=== PATIENT | male | born 1980 | race African-American/Black ===

== ENCOUNTER 2017-09-17 11:30 | Observation (INO) | payer OTHER, SELFPAY ==
[2017-09-17] VITALS (14 sets, daily range): BP systolic 124–160; BP diastolic 72–103; PULSE 73–91; RESP 15–24; TEMP 35.9–37.2; O2SAT 95–100; BMI 303.7
--- NOTE | 2017-09-17 12:14 | ED.ABDPAIN ---
HPI - Abdominal Pain <Snehal Pagan PA-C - Last Filed: 09/17/17 20:42> General Chief Complaint: Abdominal Pain Stated Complaint: states pain in rt lower quadrant,nausea Time Seen by Provider: 09/17/17 12:14 Source: patient Mode of arrival: ambulatory Limitations: no limitations History of Present Illness HPI narrative: This 37-year-old male complains of 2 day history of right flank area pain. He states initially he thought this was due to food poisoning because he had eaten a state case at the at a [employer] restaurant prior. He states that 2 days ago he also had diarrhea frequently for a day, but that fully resolved. He describes the pain as sharp and stabbing and constant. He denies any alleviating or exacerbating features such as eating or movement. He states that he has had nausea and has been throwing up frequently, 4-5 times today. He states this is yellowish fluid any feels ascitic sensation in his chest afterwards. He states that he has kept down fluids and chicken broth but no food today. He states that the pain does not radiate. He states that he has the heartburn and some pain sensation in his chest with deep breath which he thinks is from abdominal distention. He denies dyspnea. He states he had a fever of 99.8 2 days ago, has not had chills or sweats. He denies any urinary symptoms or hematuria. He has not had a bowel movement in the last 24 hr after the diarrhea resolved. He did not have any blood or mucus in the stool. He denies any recent travel, rash, or other known exposures. Related Data Home Medications Medication Instructions Recorded Confirmed hydrochlorothiazide 25 mg PO DAILY 09/17/17 09/17/17 Previous Rx's Medication Instructions Recorded oxycodone 5 mg PO Q3H PRN #30 tab 09/18/17 Allergies Allergy/AdvReac Type Severity Reaction Status Date / Time No Known Drug Allergies Allergy Verified 09/17/17 11:42 Review of Systems <Snehal Pagan PA-C - Last Filed: 09/17/17 20:42> Review of Systems All systems reviewed & are unremarkable except as noted in HPI and below Exam <ROLANDO Schultz Last Filed: 09/17/17 20:42> Initial Vital Signs Initial Vital Signs: Vital Signs Temperature 98.1 F 09/17/17 11:39 Pulse Rate 86 09/17/17 11:39 Respiratory Rate 20 09/17/17 11:39 Blood Pressure 148/90 H 09/17/17 11:39 Pulse Oximetry 96 09/17/17 11:39 GENERAL APPEARANCE: Patient sitting comfortably talking with a friend, in no distress. HEENT: PERRL, EOMI, no scleral icterus NECK: Supple LUNGS: Clear to auscultation bilaterally. HEART: Rate and rhythm regular, normal S1 and S2, no S3 or S4. ABDOMEN: Soft, obese, nondistended, soft bowel sounds present x 4 quadrants, no masses palpable, no palpable hepatosplenomegaly. He has moderate right upper quadrant tenderness with positive Child sign. Mild tenderness throughout the lower quadrants without guarding or rebound. No CVAT or lateral flank tenderness EXTREMITIES: No edema, no cyanosis. No calf tenderness DERMATOLOGIC: No jaundice or exanthem NEUROLOGIC: Alert and oriented with normal speech and coordination <Yolanda Horn DO - Last Filed: 09/21/17 08:35> Initial Vital Signs Initial Vital Signs: Vital Signs Temperature 98.1 F 09/17/17 11:39 Pulse Rate 86 09/17/17 11:39 Respiratory Rate 20 09/17/17 11:39 Blood Pressure 148/90 H 09/17/17 11:39 Pulse Oximetry 96 09/17/17 11:39 Course <Snehal Pagan PA-C - Last Filed: 09/17/17 20:42> Additional Information: Dr. Gonsales has kindly come from the OR to assess patient. He has reviewed risks with him of laparoscopic cholecystectomy given his size, versus conservative treatment. Patient has elected to have him attempt lap clyde. Plan is to take him straight to the OR from the ED. Orders Ordered: Discontinued Medications Acetaminophen (Tylenol) 325 mg PO NOW PRN PRN Reason: Pain, Mild (1-3) Acetaminophen (Tylenol) 650 mg PO Q6HR PRN PRN Reason: As Needed for Fever/Mild Pain Albuterol (Ventolin) 2.5 mg INH NOW PRN PRN Reason: Coughing, Wheezing, Dyspnea Bupivacaine HCl/Epinephrine Bitart (Sensorcaine 0.5% W/ Epi (Pf)) 30 ml INJ NOW ONE Stop: 09/17/17 16:27 Last Admin: 09/17/17 16:28 Dose: 30 ml Fentanyl (Sublimaze) 25 mcg IV Q5MIN PRN PRN Reason: Pain, Mild (1-3) Fentanyl (Sublimaze) 50 mcg IV Q5MIN PRN PRN Reason: Pain, Moderate (4-6) Fentanyl (Sublimaze) 100 mcg IV Q5MIN PRN PRN Reason: Pain, Severe (7-10) Hydromorphone HCl (Dilaudid) 0.25 mg IV Q5MIN PRN PRN Reason: Pain, Mild (1-3) Hydromorphone HCl (Dilaudid) 0.5 mg IV Q5MIN PRN PRN Reason: Pain, Moderate (4-6) Hydromorphone HCl (Dilaudid) 1 mg IM Q5MIN PRN PRN Reason: Pain, Severe (7-10) Sodium Chloride (Normal Saline 0.9%) 1,000 mls @ 1,000 mls/hr IV BOLUS ONE Stop: 09/17/17 13:24 Last Infusion: 09/17/17 16:03 Dose: 0 mls/hr Admin: 09/17/17 12:30 Dose: 1,000 mls/hr Ceftriaxone Sodium/Dextrose (Rocephin) 2 gm in 50 mls @ 100 mls/hr IV NOW ONE Stop: 09/17/17 16:02 Last Infusion: 09/17/17 15:57 Dose: 0 mls/hr Admin: 09/17/17 15:41 Dose: 100 mls/hr Lactated Ringer's (Lactated Ringers) 1,000 mls @ 42 mls/hr IV CONT FADUMO Last Admin: 09/17/17 16:55 Dose: 42 mls/hr Dextrose/Sodium Chloride (Dextrose 5%-0.45% Ns) 1,000 mls @ 100 mls/hr IV CONT FADUMO Last Admin: 09/18/17 06:37 Dose: 100 mls/hr Infusion: 09/18/17 06:37 Dose: 100 mls/hr Admin: 09/17/17 19:40 Dose: 100 mls/hr Ondansetron HCl 8 mg/ Sodium (Chloride) 54 mls @ 216 mls/hr IV Q6HR PRN PRN Reason: Nausea And Vomiting Ibuprofen (Advil) 600 mg PO Q6HR PRN PRN Reason: As Needed for Fever/Mild Pain Last Admin: 09/18/17 06:36 Dose: 600 mg Ketorolac Tromethamine (Toradol) 30 mg IV NOW ONE Stop: 09/17/17 12:26 Last Admin: 09/17/17 12:30 Dose: 30 mg Metoclopramide HCl (Reglan) 10 mg IV NOW PRN PRN Reason: Nausea And Vomiting Morphine Sulfate (Morphine) 2 mg IV Q4HR PRN PRN Reason: Pain, Moderate (4-6) Ondansetron HCl (Zofran) 4 mg IV NOW ONE Stop: 09/17/17 12:26 Last Admin: 09/17/17 12:30 Dose: 4 mg Ondansetron HCl (Zofran) 4 mg IV NOW PRN PRN Reason: Nausea And Vomiting Oxycodone/Acetaminophen (Percocet 5/325) 1 tab PO Q30MIN PRN PRN Reason: Mild or moderate pain Oxycodone/Acetaminophen (Percocet 5/325) 1 tab PO Q4HR PRN PRN Reason: Pain, Moderate (4-6) Last Admin: 09/17/17 19:39 Dose: 1 tab Ranitidine HCl (Zantac) 150 mg PO BID FADUMO Last Admin: 09/18/17 08:30 Dose: 150 mg Admin: 09/17/17 20:12 Dose: 150 mg Vital Signs - 8 hr 09/17/17 12:45 09/17/17 14:39 09/17/17 15:07 Temperature 98.4 F 98.3 F Pulse Rate 81 73 83 Respiratory Rate 24 16 Blood Pressure 160/103 H Blood Pressure [Left Arm] 151/89 H 143/82 H Pulse Oximetry 98 99 99 09/17/17 18:04 09/17/17 18:09 09/17/17 18:14 Temperature 98.2 F Pulse Rate 91 H 84 80 Respiratory Rate 20 16 18 Blood Pressure 124/72 H 130/80 H 142/73 H Blood Pressure [Left Arm] Pulse Oximetry 95 100 95 09/17/17 18:30 09/17/17 18:35 09/17/17 19:05 Temperature 97.6 F 96.6 F L Pulse Rate 86 83 82 Respiratory Rate 19 16 15 Blood Pressure 140/82 H 145/82 H 139/75 H Blood Pressure [Left Arm] Pulse Oximetry 96 97 98 09/17/17 19:35 Temperature 98.7 F Pulse Rate 81 Respiratory Rate 18 Blood Pressure 150/95 H Blood Pressure [Left Arm] Pulse Oximetry 96 <Yolanda Horn DO - Last Filed: 09/21/17 08:35> Orders Ordered: Discontinued Medications Acetaminophen (Tylenol) 325 mg PO NOW PRN PRN Reason: Pain, Mild (1-3) Acetaminophen (Tylenol) 650 mg PO Q6HR PRN PRN Reason: As Needed for Fever/Mild Pain Albuterol (Ventolin) 2.5 mg INH NOW PRN PRN Reason: Coughing, Wheezing, Dyspnea Bupivacaine HCl/Epinephrine Bitart (Sensorcaine 0.5% W/ Epi (Pf)) 30 ml INJ NOW ONE Stop: 09/17/17 16:27 Last Admin: 09/17/17 16:28 Dose: 30 ml Fentanyl (Sublimaze) 25 mcg IV Q5MIN PRN PRN Reason: Pain, Mild (1-3) Fentanyl (Sublimaze) 50 mcg IV Q5MIN PRN PRN Reason: Pain, Moderate (4-6) Fentanyl (Sublimaze) 100 mcg IV Q5MIN PRN PRN Reason: Pain, Severe (7-10) Hydromorphone HCl (Dilaudid) 0.25 mg IV Q5MIN PRN PRN Reason: Pain, Mild (1-3) Hydromorphone HCl (Dilaudid) 0.5 mg IV Q5MIN PRN PRN Reason: Pain, Moderate (4-6) Hydromorphone HCl (Dilaudid) 1 mg IM Q5MIN PRN PRN Reason: Pain, Severe (7-10) Sodium Chloride (Normal Saline 0.9%) 1,000 mls @ 1,000 mls/hr IV BOLUS ONE Stop: 09/17/17 13:24 Last Infusion: 09/17/17 16:03 Dose: 0 mls/hr Admin: 09/17/17 12:30 Dose: 1,000 mls/hr Ceftriaxone Sodium/Dextrose (Rocephin) 2 gm in 50 mls @ 100 mls/hr IV NOW ONE Stop: 09/17/17 16:02 Last Infusion: 09/17/17 15:57 Dose: 0 mls/hr Admin: 09/17/17 15:41 Dose: 100 mls/hr Lactated Ringer's (Lactated Ringers) 1,000 mls @ 42 mls/hr IV CONT FADUMO Last Admin: 09/17/17 16:55 Dose: 42 mls/hr Dextrose/Sodium Chloride (Dextrose 5%-0.45% Ns) 1,000 mls @ 100 mls/hr IV CONT FADUMO Last Admin: 09/18/17 06:37 Dose: 100 mls/hr Infusion: 09/18/17 06:37 Dose: 100 mls/hr Admin: 09/17/17 19:40 Dose: 100 mls/hr Ondansetron HCl 8 mg/ Sodium (Chloride) 54 mls @ 216 mls/hr IV Q6HR PRN PRN Reason: Nausea And Vomiting Ibuprofen (Advil) 600 mg PO Q6HR PRN PRN Reason: As Needed for Fever/Mild Pain Last Admin: 09/18/17 06:36 Dose: 600 mg Ketorolac Tromethamine (Toradol) 30 mg IV NOW ONE Stop: 09/17/17 12:26 Last Admin: 09/17/17 12:30 Dose: 30 mg Metoclopramide HCl (Reglan) 10 mg IV NOW PRN PRN Reason: Nausea And Vomiting Morphine Sulfate (Morphine) 2 mg IV Q4HR PRN PRN Reason: Pain, Moderate (4-6) Ondansetron HCl (Zofran) 4 mg IV NOW ONE Stop: 09/17/17 12:26 Last Admin: 09/17/17 12:30 Dose: 4 mg Ondansetron HCl (Zofran) 4 mg IV NOW PRN PRN Reason: Nausea And Vomiting Oxycodone/Acetaminophen (Percocet 5/325) 1 tab PO Q30MIN PRN PRN Reason: Mild or moderate pain Oxycodone/Acetaminophen (Percocet 5/325) 1 tab PO Q4HR PRN PRN Reason: Pain, Moderate (4-6) Last Admin: 09/17/17 19:39 Dose: 1 tab Ranitidine HCl (Zantac) 150 mg PO BID [facility] Last Admin: 09/18/17 08:30 Dose: 150 mg Admin: 09/17/17 20:12 Dose: 150 mg Vital Signs - 8 hr 09/17/17 12:45 09/17/17 14:39 09/17/17 15:07 Temperature 98.4 F 98.3 F Pulse Rate 81 73 83 Respiratory Rate 24 16 Blood Pressure 160/103 H Blood Pressure [Left Arm] 151/89 H 143/82 H Pulse Oximetry 98 99 99 09/17/17 18:04 09/17/17 18:09 09/17/17 18:14 Temperature 98.2 F Pulse Rate 91 H 84 80 Respiratory Rate 20 16 18 Blood Pressure 124/72 H 130/80 H 142/73 H Blood Pressure [Left Arm] Pulse Oximetry 95 100 95 09/17/17 18:30 09/17/17 18:35 09/17/17 19:05 Temperature 97.6 F 96.6 F L Pulse Rate 86 83 82 Respiratory Rate 19 16 15 Blood Pressure 140/82 H 145/82 H 139/75 H Blood Pressure [Left Arm] Pulse Oximetry 96 97 98 09/17/17 19:35 Temperature 98.7 F Pulse Rate 81 Respiratory Rate 18 Blood Pressure 150/95 H Blood Pressure [Left Arm] Pulse Oximetry 96 MDM - Abdominal Pain <Snehal Pagan PA-C - Last Filed: 09/17/17 20:42> Lab Data Attestation: I reviewed the patient's lab results. Result diagrams: 09/17/17 11:53 09/17/17 11:53 Lab Results 09/17/17 09/17/17 Range/Units 11:53 11:53 WBC 9.4 (4.5-11.0) X10^3/uL RBC 5.27 (4.5-5.9) X10^6/uL Hgb 13.9 (13.5-17.5) g/dL Hct 42.0 (41-53) % MCV 79.7 L (80-100) fL MCH 26.4 (26-34) PG MCHC 33.2 (30-36) % RDW 14.6 (11.6-14.8) % Plt Count 432 H (150-400) X10^3/uL Neut % (Auto) 66.3 (50-75) % Lymph % (Auto) 23.8 L (25-40) % [place] % (Auto) 8.3 (3-14) % Eos % (Auto) 0.8 L (2-4) % Baso % (Auto) 0.8 (0-2) % Neut # (Auto) 6200 H (5230-6837) /uL Sodium 139 (137-145) mmol/L Potassium 4.7 (3.4-5.1) mmol/L Chloride 97 L (98-107) mmol/L Carbon Dioxide 28 (22-32) mmol/L BUN 11 (9-20) mg/dL Creatinine 0.80 (0.66-1.25) mg/dL Estimated GFR > 60.0 (>60) mL/min BUN/Creatinine Ratio 13.8 (6-22) Glucose 104 H (70-100) mg/dL Calcium 9.5 (8.4-10.2) mg/dL Total Bilirubin 1.4 H (0.2-1.3) mg/dL AST 55 (17-59) IU/L ALT 54 (21-72) IU/L Alkaline Phosphatase 68 (38-126) U/L Total Creatine Kinase 343 H (55-170) U/L CK-MB (CK-2) 1.85 (<2.37) ng/mL CK-MB (CK-2) Rel Index 0.5 L (1.5-5.0) % Troponin I < 0.012 (0.01-0.034) ng/mL Total Protein 9.1 H (6.3-8.2) g/dL Albumin 4.8 (3.5-5.0) g/dL Globulin 4.3 H (1.7-4.1) g/dL Albumin/Globulin Ratio 1.1 (1.0-2.8) Lipase 129 (23-300) U/L Imaging Data Abdominal x-ray: Radiologist's impression: View Report History [address] [address] XRay Report Signed Patient: Anuj Donahue MR#: [id number] : 1980 Acct:[id number] Age/Sex: 37 / M Date of Service: 09/17/17 Loc: ED Accession Number: [id number] Procedure: XR acute abdomen series Ordering Provider: Snehal Pagan P.A-C PROCEDURE: XR ACUTE ABDOMEN SERIES INDICATIONS: pain, vomiting TECHNIQUE: One view chest and two views of the abdomen were acquired. COMPARISON: None. FINDINGS: Surgical changes and devices: None. Chest: Lung volumes are low with scattered atelectasis. No focal consolidation. Heart size is normal. No pleural effusions. No pneumoperitoneum. Abdomen: Bowel gas pattern is normal. No suspicious calcifications. Visualized solid organ contours appear normal. Bones: No suspicious bony lesions. IMPRESSION: No evidence for bowel obstruction. No acute cardiopulmonary disease. Dictated by: Jaime Ramos M.D. on 09/17/2017 at 13:55 Approved by: Jaime Ramos M.D. on 09/17/2017 at 13:56 US - abdomen: Radiologist's impression: View Report History [address] [address] Ultrasound Report Signed Patient: Anuj Donahue MR#: [id number] : 1980 Acct:[id number] Age/Sex: 37 / M Date of Service: 09/17/17 Loc: ED Accession Number: [id number] Procedure: US abdomen complete Ordering Provider: Snehal Pagan P.A-C PROCEDURE: US ABDOMEN COMPLETE INDICATIONS: RIGHT UPPER QUADRANT/FLANK PAIN TECHNIQUE: Real-time scanning was performed of the abdominal and retroperitoneal organs, with image documentation. COMPARISON: None. FINDINGS: Liver: Liver is coarsely echogenic. No focal hepatic lesion Gallbladder: Gallstones are seen measuring up to 2.9 cm and nonmobile 1.7 cm gallstone is seen in the neck possibly impacted. No gallbladder wall thickening. No pericholecystic fluid. There was a positive sonographic Child sign Biliary ducts: Intrahepatic bile ducts are non-dilated. Extrahepatic bile duct caliber measures 4-5 mm. Normal is 6-7 mm or less in diameter, or 10 mm or less post-cholecystectomy. Pancreas: Visualized portions of the pancreas are sonographically normal. Spleen: Spleen is normal in size and homogeneous in echotexture. Kidneys: Kidneys are normal in size and echotexture. Right kidney measures 12.4 cm long; left kidney measures 11.5 cm long. No hydronephrosis or nephrolithiasis. No solid masses. Aorta: Obscured by bowel gas/body habitus Iliacs: Obscured IVC: Intrahepatic inferior vena cava is patent. Miscellaneous: No free abdominal fluid. IMPRESSION: Cholelithiasis, possible impacted appearance in the gallbladder neck. Positive sonographic Child sign however no pericholecystic fluid or gallbladder wall thickening therefore please correlate clinically and with LFTs to exclude acute cholecystitis. Echogenic liver suggestive of diffuse hepatocellular disease/fatty infiltration. Dictated by: Jaime Ramos M.D. on 09/17/2017 at 13:59 Approved by: Jaime Ramos M.D. on 09/17/2017 at 14:02 ECG Data Attestation: I personally reviewed and interpreted this ECG as follows: (NSR with rate 83, normal axis) Prior ECG tracings: not available for review <Yolanda Horn DO - Last Filed: 09/21/17 08:35> Lab Data Lab Results 09/17/17 09/17/17 Range/Units 11:53 11:53 WBC 9.4 (4.5-11.0) X10^3/uL RBC 5.27 (4.5-5.9) X10^6/uL Hgb 13.9 (13.5-17.5) g/dL Hct 42.0 (41-53) % MCV 79.7 L (80-100) fL MCH 26.4 (26-34) PG MCHC 33.2 (30-36) % RDW 14.6 (11.6-14.8) % Plt Count 432 H (150-400) X10^3/uL Neut % (Auto) 66.3 (50-75) % Lymph % (Auto) 23.8 L (25-40) % [place] % (Auto) 8.3 (3-14) % Eos % (Auto) 0.8 L (2-4) % Baso % (Auto) 0.8 (0-2) % Neut # (Auto) 6200 H (2990-0316) /uL Sodium 139 (137-145) mmol/L Potassium 4.7 (3.4-5.1) mmol/L Chloride 97 L (98-107) mmol/L Carbon Dioxide 28 (22-32) mmol/L BUN 11 (9-20) mg/dL Creatinine 0.80 (0.66-1.25) mg/dL Estimated GFR > 60.0 (>60) mL/min BUN/Creatinine Ratio 13.8 (6-22) Glucose 104 H (70-100) mg/dL Calcium 9.5 (8.4-10.2) mg/dL Total Bilirubin 1.4 H (0.2-1.3) mg/dL AST 55 (17-59) IU/L ALT 54 (21-72) IU/L Alkaline Phosphatase 68 (38-126) U/L Total Creatine Kinase 343 H (55-170) U/L CK-MB (CK-2) 1.85 (<2.37) ng/mL CK-MB (CK-2) Rel Index 0.5 L (1.5-5.0) % Troponin I < 0.012 (0.01-0.034) ng/mL Total Protein 9.1 H (6.3-8.2) g/dL Albumin 4.8 (3.5-5.0) g/dL Globulin 4.3 H (1.7-4.1) g/dL Albumin/Globulin Ratio 1.1 (1.0-2.8) Lipase 129 (23-300) U/L Discharge Plan Departure Patient Disposition: Released, Other Clinical Impression: Cholecystectomy planned, Cholecystitis Discharge Date/Time: 09/17/17 15:00 Interventions: ED Discharge Assessment Last Done: 09/17/17 14:50 Admit Date/Time: 09/17/17 18:04 Admit Provider: Jesus Gonsales <Yolanda Horn DO - Last Filed: 09/21/17 08:35> Cosign ED Attending Cosbonnieature Attestation: I was immediately available in the department for consultation. Documentation has been reviewed. I agree with assessment and plan.
--- NOTE | 2017-09-17 12:25 | DI.RAD.S_ITS ---
PROCEDURE: XR ACUTE ABDOMEN SERIES INDICATIONS: pain, vomiting TECHNIQUE: One view chest and two views of the abdomen were acquired. COMPARISON: None. FINDINGS: Surgical changes and devices: None. Chest: Lung volumes are low with scattered atelectasis. No focal consolidation. Heart size is normal. No pleural effusions. No pneumoperitoneum. Abdomen: Bowel gas pattern is normal. No suspicious calcifications. Visualized solid organ contours appear normal. Bones: No suspicious bony lesions. IMPRESSION: No evidence for bowel obstruction. No acute cardiopulmonary disease. Dictated by: Jaime Ramos M.D. on 09/17/2017 at 13:55 Approved by: Jaime Ramos M.D. on 09/17/2017 at 13:56
--- NOTE | 2017-09-17 12:25 | DI.US.S_ITS ---
PROCEDURE: US ABDOMEN COMPLETE INDICATIONS: RIGHT UPPER QUADRANT/FLANK PAIN TECHNIQUE: Real-time scanning was performed of the abdominal and retroperitoneal organs, with image documentation. COMPARISON: None. FINDINGS: Liver: Liver is coarsely echogenic. No focal hepatic lesion Gallbladder: Gallstones are seen measuring up to 2.9 cm and nonmobile 1.7 cm gallstone is seen in the neck possibly impacted. No gallbladder wall thickening. No pericholecystic fluid. There was a positive sonographic Child sign Biliary ducts: Intrahepatic bile ducts are non-dilated. Extrahepatic bile duct caliber measures 4-5 mm. Normal is 6-7 mm or less in diameter, or 10 mm or less post-cholecystectomy. Pancreas: Visualized portions of the pancreas are sonographically normal. Spleen: Spleen is normal in size and homogeneous in echotexture. Kidneys: Kidneys are normal in size and echotexture. Right kidney measures 12.4 cm long; left kidney measures 11.5 cm long. No hydronephrosis or nephrolithiasis. No solid masses. Aorta: Obscured by bowel gas/body habitus Iliacs: Obscured IVC: Intrahepatic inferior vena cava is patent. Miscellaneous: No free abdominal fluid. IMPRESSION: Cholelithiasis, possible impacted appearance in the gallbladder neck. Positive sonographic Child sign however no pericholecystic fluid or gallbladder wall thickening therefore please correlate clinically and with LFTs to exclude acute cholecystitis. Echogenic liver suggestive of diffuse hepatocellular disease/fatty infiltration. Dictated by: Jaime Ramos M.D. on 09/17/2017 at 13:59 Approved by: Jaime Ramos M.D. on 09/17/2017 at 14:02
[2017-09-17] MEDS: KETOROLAC 60 MG/2 ML VIAL 30 MG IV (12:30)
[2017-09-17] MEDS: SODIUM CHLORIDE 0.9% 1,000 ML 1000 ML IV (12:30)
[2017-09-17] MEDS: ONDANSETRON 4 MG/2 ML INJ IV (12:30)
--- NOTE | 2017-09-17 12:32 | ED_ITS ---
HPI - Abdominal Pain <Snehal Pagan PA-C - Last Filed: 09/17/17 20:42> General Chief Complaint: Abdominal Pain Stated Complaint: states pain in rt lower quadrant,nausea Time Seen by Provider: 09/17/17 12:14 Source: patient Mode of arrival: ambulatory Limitations: no limitations History of Present Illness HPI narrative: This 37-year-old male complains of 2 day history of right flank area pain. He states initially he thought this was due to food poisoning because he had eaten a state case at the at a [employer] restaurant prior. He states that 2 days ago he also had diarrhea frequently for a day, but that fully resolved. He describes the pain as sharp and stabbing and constant. He denies any alleviating or exacerbating features such as eating or movement. He states that he has had nausea and has been throwing up frequently, 4-5 times today. He states this is yellowish fluid any feels ascitic sensation in his chest afterwards. He states that he has kept down fluids and chicken broth but no food today. He states that the pain does not radiate. He states that he has the heartburn and some pain sensation in his chest with deep breath which he thinks is from abdominal distention. He denies dyspnea. He states he had a fever of 99.8 2 days ago, has not had chills or sweats. He denies any urinary symptoms or hematuria. He has not had a bowel movement in the last 24 hr after the diarrhea resolved. He did not have any blood or mucus in the stool. He denies any recent travel, rash, or other known exposures. Related Data Home Medications Medication Instructions Recorded Confirmed hydrochlorothiazide 25 mg PO DAILY 09/17/17 09/17/17 Previous Rx's Medication Instructions Recorded oxycodone 5 mg PO Q3H PRN #30 tab 09/18/17 Allergies Allergy/AdvReac Type Severity Reaction Status Date / Time No Known Drug Allergies Allergy Verified 09/17/17 11:42 Review of Systems <Snehal Pagan PA-C - Last Filed: 09/17/17 20:42> Review of Systems All systems reviewed & are unremarkable except as noted in HPI and below Exam <ROLANDO Schultz Last Filed: 09/17/17 20:42> Initial Vital Signs Initial Vital Signs: Vital Signs Temperature 98.1 F 09/17/17 11:39 Pulse Rate 86 09/17/17 11:39 Respiratory Rate 20 09/17/17 11:39 Blood Pressure 148/90 H 09/17/17 11:39 Pulse Oximetry 96 09/17/17 11:39 GENERAL APPEARANCE: Patient sitting comfortably talking with a friend, in no distress. HEENT: PERRL, EOMI, no scleral icterus NECK: Supple LUNGS: Clear to auscultation bilaterally. HEART: Rate and rhythm regular, normal S1 and S2, no S3 or S4. ABDOMEN: Soft, obese, nondistended, soft bowel sounds present x 4 quadrants, no masses palpable, no palpable hepatosplenomegaly. He has moderate right upper quadrant tenderness with positive Child sign. Mild tenderness throughout the lower quadrants without guarding or rebound. No CVAT or lateral flank tenderness EXTREMITIES: No edema, no cyanosis. No calf tenderness DERMATOLOGIC: No jaundice or exanthem NEUROLOGIC: Alert and oriented with normal speech and coordination <Yolanda Horn DO - Last Filed: 09/21/17 08:35> Initial Vital Signs Initial Vital Signs: Vital Signs Temperature 98.1 F 09/17/17 11:39 Pulse Rate 86 09/17/17 11:39 Respiratory Rate 20 09/17/17 11:39 Blood Pressure 148/90 H 09/17/17 11:39 Pulse Oximetry 96 09/17/17 11:39 Course <Snehal Pagan PA-C - Last Filed: 09/17/17 20:42> Additional Information: Dr. Gonsales has kindly come from the OR to assess patient. He has reviewed risks with him of laparoscopic cholecystectomy given his size, versus conservative treatment. Patient has elected to have him attempt lap clyde. Plan is to take him straight to the OR from the ED. Orders Ordered: Discontinued Medications Acetaminophen (Tylenol) 325 mg PO NOW PRN PRN Reason: Pain, Mild (1-3) Acetaminophen (Tylenol) 650 mg PO Q6HR PRN PRN Reason: As Needed for Fever/Mild Pain Albuterol (Ventolin) 2.5 mg INH NOW PRN PRN Reason: Coughing, Wheezing, Dyspnea Bupivacaine HCl/Epinephrine Bitart (Sensorcaine 0.5% W/ Epi (Pf)) 30 ml INJ NOW ONE Stop: 09/17/17 16:27 Last Admin: 09/17/17 16:28 Dose: 30 ml Fentanyl (Sublimaze) 25 mcg IV Q5MIN PRN PRN Reason: Pain, Mild (1-3) Fentanyl (Sublimaze) 50 mcg IV Q5MIN PRN PRN Reason: Pain, Moderate (4-6) Fentanyl (Sublimaze) 100 mcg IV Q5MIN PRN PRN Reason: Pain, Severe (7-10) Hydromorphone HCl (Dilaudid) 0.25 mg IV Q5MIN PRN PRN Reason: Pain, Mild (1-3) Hydromorphone HCl (Dilaudid) 0.5 mg IV Q5MIN PRN PRN Reason: Pain, Moderate (4-6) Hydromorphone HCl (Dilaudid) 1 mg IM Q5MIN PRN PRN Reason: Pain, Severe (7-10) Sodium Chloride (Normal Saline 0.9%) 1,000 mls @ 1,000 mls/hr IV BOLUS ONE Stop: 09/17/17 13:24 Last Infusion: 09/17/17 16:03 Dose: 0 mls/hr Admin: 09/17/17 12:30 Dose: 1,000 mls/hr Ceftriaxone Sodium/Dextrose (Rocephin) 2 gm in 50 mls @ 100 mls/hr IV NOW ONE Stop: 09/17/17 16:02 Last Infusion: 09/17/17 15:57 Dose: 0 mls/hr Admin: 09/17/17 15:41 Dose: 100 mls/hr Lactated Ringer's (Lactated Ringers) 1,000 mls @ 42 mls/hr IV CONT FADUMO Last Admin: 09/17/17 16:55 Dose: 42 mls/hr Dextrose/Sodium Chloride (Dextrose 5%-0.45% Ns) 1,000 mls @ 100 mls/hr IV CONT FADUMO Last Admin: 09/18/17 06:37 Dose: 100 mls/hr Infusion: 09/18/17 06:37 Dose: 100 mls/hr Admin: 09/17/17 19:40 Dose: 100 mls/hr Ondansetron HCl 8 mg/ Sodium (Chloride) 54 mls @ 216 mls/hr IV Q6HR PRN PRN Reason: Nausea And Vomiting Ibuprofen (Advil) 600 mg PO Q6HR PRN PRN Reason: As Needed for Fever/Mild Pain Last Admin: 09/18/17 06:36 Dose: 600 mg Ketorolac Tromethamine (Toradol) 30 mg IV NOW ONE Stop: 09/17/17 12:26 Last Admin: 09/17/17 12:30 Dose: 30 mg Metoclopramide HCl (Reglan) 10 mg IV NOW PRN PRN Reason: Nausea And Vomiting Morphine Sulfate (Morphine) 2 mg IV Q4HR PRN PRN Reason: Pain, Moderate (4-6) Ondansetron HCl (Zofran) 4 mg IV NOW ONE Stop: 09/17/17 12:26 Last Admin: 09/17/17 12:30 Dose: 4 mg Ondansetron HCl (Zofran) 4 mg IV NOW PRN PRN Reason: Nausea And Vomiting Oxycodone/Acetaminophen (Percocet 5/325) 1 tab PO Q30MIN PRN PRN Reason: Mild or moderate pain Oxycodone/Acetaminophen (Percocet 5/325) 1 tab PO Q4HR PRN PRN Reason: Pain, Moderate (4-6) Last Admin: 09/17/17 19:39 Dose: 1 tab Ranitidine HCl (Zantac) 150 mg PO BID FADUMO Last Admin: 09/18/17 08:30 Dose: 150 mg Admin: 09/17/17 20:12 Dose: 150 mg Vital Signs - 8 hr 09/17/17 12:45 09/17/17 14:39 09/17/17 15:07 Temperature 98.4 F 98.3 F Pulse Rate 81 73 83 Respiratory Rate 24 16 Blood Pressure 160/103 H Blood Pressure [Left Arm] 151/89 H 143/82 H Pulse Oximetry 98 99 99 09/17/17 18:04 09/17/17 18:09 09/17/17 18:14 Temperature 98.2 F Pulse Rate 91 H 84 80 Respiratory Rate 20 16 18 Blood Pressure 124/72 H 130/80 H 142/73 H Blood Pressure [Left Arm] Pulse Oximetry 95 100 95 09/17/17 18:30 09/17/17 18:35 09/17/17 19:05 Temperature 97.6 F 96.6 F L Pulse Rate 86 83 82 Respiratory Rate 19 16 15 Blood Pressure 140/82 H 145/82 H 139/75 H Blood Pressure [Left Arm] Pulse Oximetry 96 97 98 09/17/17 19:35 Temperature 98.7 F Pulse Rate 81 Respiratory Rate 18 Blood Pressure 150/95 H Blood Pressure [Left Arm] Pulse Oximetry 96 <Yolanda Horn DO - Last Filed: 09/21/17 08:35> Orders Ordered: Discontinued Medications Acetaminophen (Tylenol) 325 mg PO NOW PRN PRN Reason: Pain, Mild (1-3) Acetaminophen (Tylenol) 650 mg PO Q6HR PRN PRN Reason: As Needed for Fever/Mild Pain Albuterol (Ventolin) 2.5 mg INH NOW PRN PRN Reason: Coughing, Wheezing, Dyspnea Bupivacaine HCl/Epinephrine Bitart (Sensorcaine 0.5% W/ Epi (Pf)) 30 ml INJ NOW ONE Stop: 09/17/17 16:27 Last Admin: 09/17/17 16:28 Dose: 30 ml Fentanyl (Sublimaze) 25 mcg IV Q5MIN PRN PRN Reason: Pain, Mild (1-3) Fentanyl (Sublimaze) 50 mcg IV Q5MIN PRN PRN Reason: Pain, Moderate (4-6) Fentanyl (Sublimaze) 100 mcg IV Q5MIN PRN PRN Reason: Pain, Severe (7-10) Hydromorphone HCl (Dilaudid) 0.25 mg IV Q5MIN PRN PRN Reason: Pain, Mild (1-3) Hydromorphone HCl (Dilaudid) 0.5 mg IV Q5MIN PRN PRN Reason: Pain, Moderate (4-6) Hydromorphone HCl (Dilaudid) 1 mg IM Q5MIN PRN PRN Reason: Pain, Severe (7-10) Sodium Chloride (Normal Saline 0.9%) 1,000 mls @ 1,000 mls/hr IV BOLUS ONE Stop: 09/17/17 13:24 Last Infusion: 09/17/17 16:03 Dose: 0 mls/hr Admin: 09/17/17 12:30 Dose: 1,000 mls/hr Ceftriaxone Sodium/Dextrose (Rocephin) 2 gm in 50 mls @ 100 mls/hr IV NOW ONE Stop: 09/17/17 16:02 Last Infusion: 09/17/17 15:57 Dose: 0 mls/hr Admin: 09/17/17 15:41 Dose: 100 mls/hr Lactated Ringer's (Lactated Ringers) 1,000 mls @ 42 mls/hr IV CONT FADUMO Last Admin: 09/17/17 16:55 Dose: 42 mls/hr Dextrose/Sodium Chloride (Dextrose 5%-0.45% Ns) 1,000 mls @ 100 mls/hr IV CONT FADUMO Last Admin: 09/18/17 06:37 Dose: 100 mls/hr Infusion: 09/18/17 06:37 Dose: 100 mls/hr Admin: 09/17/17 19:40 Dose: 100 mls/hr Ondansetron HCl 8 mg/ Sodium (Chloride) 54 mls @ 216 mls/hr IV Q6HR PRN PRN Reason: Nausea And Vomiting Ibuprofen (Advil) 600 mg PO Q6HR PRN PRN Reason: As Needed for Fever/Mild Pain Last Admin: 09/18/17 06:36 Dose: 600 mg Ketorolac Tromethamine (Toradol) 30 mg IV NOW ONE Stop: 09/17/17 12:26 Last Admin: 09/17/17 12:30 Dose: 30 mg Metoclopramide HCl (Reglan) 10 mg IV NOW PRN PRN Reason: Nausea And Vomiting Morphine Sulfate (Morphine) 2 mg IV Q4HR PRN PRN Reason: Pain, Moderate (4-6) Ondansetron HCl (Zofran) 4 mg IV NOW ONE Stop: 09/17/17 12:26 Last Admin: 09/17/17 12:30 Dose: 4 mg Ondansetron HCl (Zofran) 4 mg IV NOW PRN PRN Reason: Nausea And Vomiting Oxycodone/Acetaminophen (Percocet 5/325) 1 tab PO Q30MIN PRN PRN Reason: Mild or moderate pain Oxycodone/Acetaminophen (Percocet 5/325) 1 tab PO Q4HR PRN PRN Reason: Pain, Moderate (4-6) Last Admin: 09/17/17 19:39 Dose: 1 tab Ranitidine HCl (Zantac) 150 mg PO BID [facility] Last Admin: 09/18/17 08:30 Dose: 150 mg Admin: 09/17/17 20:12 Dose: 150 mg Vital Signs - 8 hr 09/17/17 12:45 09/17/17 14:39 09/17/17 15:07 Temperature 98.4 F 98.3 F Pulse Rate 81 73 83 Respiratory Rate 24 16 Blood Pressure 160/103 H Blood Pressure [Left Arm] 151/89 H 143/82 H Pulse Oximetry 98 99 99 09/17/17 18:04 09/17/17 18:09 09/17/17 18:14 Temperature 98.2 F Pulse Rate 91 H 84 80 Respiratory Rate 20 16 18 Blood Pressure 124/72 H 130/80 H 142/73 H Blood Pressure [Left Arm] Pulse Oximetry 95 100 95 09/17/17 18:30 09/17/17 18:35 09/17/17 19:05 Temperature 97.6 F 96.6 F L Pulse Rate 86 83 82 Respiratory Rate 19 16 15 Blood Pressure 140/82 H 145/82 H 139/75 H Blood Pressure [Left Arm] Pulse Oximetry 96 97 98 09/17/17 19:35 Temperature 98.7 F Pulse Rate 81 Respiratory Rate 18 Blood Pressure 150/95 H Blood Pressure [Left Arm] Pulse Oximetry 96 MDM - Abdominal Pain <Snehal Pagan PA-C - Last Filed: 09/17/17 20:42> Lab Data Attestation: I reviewed the patient's lab results. Result diagrams: 09/17/17 11:53 09/17/17 11:53 Lab Results 09/17/17 09/17/17 Range/Units 11:53 11:53 WBC 9.4 (4.5-11.0) X10^3/uL RBC 5.27 (4.5-5.9) X10^6/uL Hgb 13.9 (13.5-17.5) g/dL Hct 42.0 (41-53) % MCV 79.7 L (80-100) fL MCH 26.4 (26-34) PG MCHC 33.2 (30-36) % RDW 14.6 (11.6-14.8) % Plt Count 432 H (150-400) X10^3/uL Neut % (Auto) 66.3 (50-75) % Lymph % (Auto) 23.8 L (25-40) % Cook % (Auto) 8.3 (3-14) % Eos % (Auto) 0.8 L (2-4) % Baso % (Auto) 0.8 (0-2) % Neut # (Auto) 6200 H (5479-7149) /uL Sodium 139 (137-145) mmol/L Potassium 4.7 (3.4-5.1) mmol/L Chloride 97 L (98-107) mmol/L Carbon Dioxide 28 (22-32) mmol/L BUN 11 (9-20) mg/dL Creatinine 0.80 (0.66-1.25) mg/dL Estimated GFR > 60.0 (>60) mL/min BUN/Creatinine Ratio 13.8 (6-22) Glucose 104 H (70-100) mg/dL Calcium 9.5 (8.4-10.2) mg/dL Total Bilirubin 1.4 H (0.2-1.3) mg/dL AST 55 (17-59) IU/L ALT 54 (21-72) IU/L Alkaline Phosphatase 68 (38-126) U/L Total Creatine Kinase 343 H (55-170) U/L CK-MB (CK-2) 1.85 (<2.37) ng/mL CK-MB (CK-2) Rel Index 0.5 L (1.5-5.0) % Troponin I < 0.012 (0.01-0.034) ng/mL Total Protein 9.1 H (6.3-8.2) g/dL Albumin 4.8 (3.5-5.0) g/dL Globulin 4.3 H (1.7-4.1) g/dL Albumin/Globulin Ratio 1.1 (1.0-2.8) Lipase 129 (23-300) U/L Imaging Data Abdominal x-ray: Radiologist's impression: View Report History [address] [address] XRay Report Signed Patient: Anuj Donahue MR#: [id number] : 1980 Acct:[id number] Age/Sex: 37 / M Date of Service: 09/17/17 Loc: ED Accession Number: [id number] Procedure: XR acute abdomen series Ordering Provider: Snehal Pagan P.A-C PROCEDURE: XR ACUTE ABDOMEN SERIES INDICATIONS: pain, vomiting TECHNIQUE: One view chest and two views of the abdomen were acquired. COMPARISON: None. FINDINGS: Surgical changes and devices: None. Chest: Lung volumes are low with scattered atelectasis. No focal consolidation. Heart size is normal. No pleural effusions. No pneumoperitoneum. Abdomen: Bowel gas pattern is normal. No suspicious calcifications. Visualized solid organ contours appear normal. Bones: No suspicious bony lesions. IMPRESSION: No evidence for bowel obstruction. No acute cardiopulmonary disease. Dictated by: Jaime Ramos M.D. on 09/17/2017 at 13:55 Approved by: Jaime Ramos M.D. on 09/17/2017 at 13:56 US - abdomen: Radiologist's impression: View Report History [address] [address] Ultrasound Report Signed Patient: Anuj Donahue MR#: [id number] : 1980 Acct:[id number] Age/Sex: 37 / M Date of Service: 09/17/17 Loc: ED Accession Number: [id number] Procedure: US abdomen complete Ordering Provider: Snehal Pagan P.A-C PROCEDURE: US ABDOMEN COMPLETE INDICATIONS: RIGHT UPPER QUADRANT/FLANK PAIN TECHNIQUE: Real-time scanning was performed of the abdominal and retroperitoneal organs, with image documentation. COMPARISON: None. FINDINGS: Liver: Liver is coarsely echogenic. No focal hepatic lesion Gallbladder: Gallstones are seen measuring up to 2.9 cm and nonmobile 1.7 cm gallstone is seen in the neck possibly impacted. No gallbladder wall thickening. No pericholecystic fluid. There was a positive sonographic Child sign Biliary ducts: Intrahepatic bile ducts are non-dilated. Extrahepatic bile duct caliber measures 4-5 mm. Normal is 6-7 mm or less in diameter, or 10 mm or less post-cholecystectomy. Pancreas: Visualized portions of the pancreas are sonographically normal. Spleen: Spleen is normal in size and homogeneous in echotexture. Kidneys: Kidneys are normal in size and echotexture. Right kidney measures 12.4 cm long; left kidney measures 11.5 cm long. No hydronephrosis or nephrolithiasis. No solid masses. Aorta: Obscured by bowel gas/body habitus Iliacs: Obscured IVC: Intrahepatic inferior vena cava is patent. Miscellaneous: No free abdominal fluid. IMPRESSION: Cholelithiasis, possible impacted appearance in the gallbladder neck. Positive sonographic Child sign however no pericholecystic fluid or gallbladder wall thickening therefore please correlate clinically and with LFTs to exclude acute cholecystitis. Echogenic liver suggestive of diffuse hepatocellular disease/fatty infiltration. Dictated by: Jaime Ramos M.D. on 09/17/2017 at 13:59 Approved by: Jaime Ramos M.D. on 09/17/2017 at 14:02 ECG Data Attestation: I personally reviewed and interpreted this ECG as follows: (NSR with rate 83, normal axis) Prior ECG tracings: not available for review <Yolanda Horn DO - Last Filed: 09/21/17 08:35> Lab Data Lab Results 09/17/17 09/17/17 Range/Units 11:53 11:53 WBC 9.4 (4.5-11.0) X10^3/uL RBC 5.27 (4.5-5.9) X10^6/uL Hgb 13.9 (13.5-17.5) g/dL Hct 42.0 (41-53) % MCV 79.7 L (80-100) fL MCH 26.4 (26-34) PG MCHC 33.2 (30-36) % RDW 14.6 (11.6-14.8) % Plt Count 432 H (150-400) X10^3/uL Neut % (Auto) 66.3 (50-75) % Lymph % (Auto) 23.8 L (25-40) % Cook % (Auto) 8.3 (3-14) % Eos % (Auto) 0.8 L (2-4) % Baso % (Auto) 0.8 (0-2) % Neut # (Auto) 6200 H (0864-2320) /uL Sodium 139 (137-145) mmol/L Potassium 4.7 (3.4-5.1) mmol/L Chloride 97 L (98-107) mmol/L Carbon Dioxide 28 (22-32) mmol/L BUN 11 (9-20) mg/dL Creatinine 0.80 (0.66-1.25) mg/dL Estimated GFR > 60.0 (>60) mL/min BUN/Creatinine Ratio 13.8 (6-22) Glucose 104 H (70-100) mg/dL Calcium 9.5 (8.4-10.2) mg/dL Total Bilirubin 1.4 H (0.2-1.3) mg/dL AST 55 (17-59) IU/L ALT 54 (21-72) IU/L Alkaline Phosphatase 68 (38-126) U/L Total Creatine Kinase 343 H (55-170) U/L CK-MB (CK-2) 1.85 (<2.37) ng/mL CK-MB (CK-2) Rel Index 0.5 L (1.5-5.0) % Troponin I < 0.012 (0.01-0.034) ng/mL Total Protein 9.1 H (6.3-8.2) g/dL Albumin 4.8 (3.5-5.0) g/dL Globulin 4.3 H (1.7-4.1) g/dL Albumin/Globulin Ratio 1.1 (1.0-2.8) Lipase 129 (23-300) U/L Discharge Plan Departure Patient Disposition: Released, Other Clinical Impression: Cholecystectomy planned, Cholecystitis Discharge Date/Time: 09/17/17 15:00 Interventions: ED Discharge Assessment Last Done: 09/17/17 14:50 Admit Date/Time: 09/17/17 18:04 Admit Provider: Jesus Gonsales <Yolanda Horn DO - Last Filed: 09/21/17 08:35> Cosign ED Attending Cosbonnieature Attestation: I was immediately available in the department for consultation. Documentation has been reviewed. I agree with assessment and plan.
[2017-09-17 12:37] LABS: Add Manual Diff / Slide Review NO; Basophils Percent Auto 0.8 % (0-2); Eosinophils Percent Auto 0.8 % (2-4); Hemoglobin 13.9 g/dL (13.5-17.5); Lymphocytes Percent Auto 23.8 % (25-40); Mean Corpuscular HGB Conc 33.2 % (30-36); Mean Corpuscular Hemoglobin 26.4 PG (26-34); Mean Corpuscular Volume 79.7 fL (80-100); Monocytes Percent Auto 8.3 % (3-14); Neutrophils Absolute Auto 6200 /uL (3000-5900); Neutrophils Percent Auto 66.3 % (50-75); Platelet Count 432 X10^3/uL (150-400); Red Blood Cell Count 5.27 X10^6/uL (4.5-5.9); Red Cell Distribution Width 14.6 % (11.6-14.8); White Blood Cell Count 9.4 X10^3/uL (4.5-11.0)
[2017-09-17 12:41] LABS: Alanine Aminotransferase 54 IU/L (21-72); Albumin 4.8 g/dL (3.5-5.0); Albumin Globulin Ratio 1.1 (1.0-2.8); Alkaline Phosphatase 68 U/L (38-126); Aspartate Aminotransferase 55 IU/L (17-59); BUN Creatinine Ratio 13.8 (6-22); Bilirubin Total 1.4 mg/dL (0.2-1.3); Blood Urea Nitrogen 11 mg/dL (9-20); Calcium 9.5 mg/dL (8.4-10.2); Carbon Dioxide 28 mmol/L (22-32); Chloride 97 mmol/L (98-107); Creatine Kinase 343 U/L (55-170); Estimated Glomerular Filt Rate > 60.0 mL/min (>60); Globulin 4.3 g/dL (1.7-4.1); Glucose 104 mg/dL (70-100); Lipase 129 U/L (23-300); Potassium 4.7 mmol/L (3.4-5.1); Sodium 139 mmol/L (137-145); Total Protein 9.1 g/dL (6.3-8.2)
[2017-09-17 12:53] LABS: Troponin I < 0.012 ng/mL (0.01-0.034)
[2017-09-17 12:57] LABS: CKMB % Relative Index 0.5 % (1.5-5.0); Creatine Kinase MB 1.85 ng/mL (<2.37); HEMOLYSIS 165 (0-50)
--- NOTE | 2017-09-17 14:53 | SUR.PREOP ---
PT FROM OR FROM ER GOING DIRECT TO OR.. AMBULATED TO BR GAIT STEADY..DENIES PAIN,, NO NAUSEA IV PATENT
[2017-09-17] MEDS: CEFTRIAXONE 2 GM/50 ML FROZ.PIGGY IV (15:41)
--- NOTE | 2017-09-17 16:17 | SUR.OPER ---
Supine on padded OR bed, head on pillow, right arm secured on padded arm boards at <90 degrees abduction. left arm tucked at side with gel pad, legs uncrossed, safety belt at thigh, tape over blanket over lower legs, footboard at end of bed, bed extenders applied to both sides of bed.
[2017-09-17] MEDS: BUPIVACAINE 0.5% W/ EPI (PF) 30 ML VIAL INJ (16:28)
--- NOTE | 2017-09-17 16:40 | HP_ITS ---
DATE OF SERVICE: 09/17/2017 TIME: About 3:30 in the afternoon. HISTORY OF PRESENT ILLNESS: A 37-year-old white male who is morbidly obese comes in with a 2-day history of right subcostal pain radiating into the back. Pain is very severe, he states, 9/10. He has had nausea, some vomiting. Pain was in the right flank and radiating into the right subscapular area. He has had this pain for 2 solid days. He has never had a similar attack. He came to the emergency room where we find that he has a normal white count. Ultrasound of the abdomen shows an impacted cystic duct stone, and I have seen him in consultation in the ER, and I have prepared him for laparoscopic cholecystectomy. I spent a great deal of time explaining to the patient that his morbid obesity makes him a difficult surgical management patient with a difficult airway and with a difficult surgical approach, especially laparoscopically or even open. I have explained to the patient that we might not be able to actually get his gallbladder out with a laparoscope. We may be forced to do open surgery or we may be forced to abandon the procedure if, indeed, we cannot do it safely with either approach, and then we would simply treat him with antibiotics and try to get him to the point where he could go home and consider bariatric surgery and then cholecystectomy subsequently. He has agreed to general anesthesia and laparoscopy with the thought of laparoscopic cholecystectomy. PAST MEDICAL HISTORY: He is hypertensive. No diabetes. No cardiac disease. MEDICATIONS: He takes hydrochlorothiazide daily. SOCIAL HISTORY: He is a nonsmoker, and he has never been a smoker. He does drink occasional alcohol. Does not use street drugs. REVIEW OF SYSTEMS: Negative except for that mentioned above. NEUROLOGIC: No strokes, TIAs, or seizures. PHYSICAL EXAMINATION VITAL SIGNS: He is afebrile. Temperature 98, heart rate 86, respirations 20, blood pressure 148/90. HEENT: Ears, nose, and throat are normal. NECK: No adenopathy. CHEST: Lungs are clear. HEART: Regular rhythm. No murmur. ABDOMEN: Massively obese. He is tender in the right subcostal area with a positive Child sign. No organomegaly is noted. No masses noted. SKIN: The patient is not jaundiced. The remainder of the physical is unremarkable except for morbid obesity. LABORATORY DATA/X-RAYS: He has a normal white count. Normal liver chemistries. Normal hemoglobin. Normal renal function. Total bilirubin is slightly elevated at 1.4. The upper limit of normal is 1.3. PLAN: Laparoscopic cholecystectomy. The patient is being prepared for laparoscopic cholecystectomy. DonahueAnuj valles - /laura/sharri doc#: [id number]/job#: [id number] dd: 09/17/2017 15:32:00 dt: 09/17/2017 16:24:00 DICTATING /COPIES TO: Jesus Gonsales MD COPIES MNE: OWEN
[2017-09-17] MEDS: LACTATED RINGERS 1,000 ML 42 ML IV (16:55)
[2017-09-17] MEDS: OXYCODONE/ACETAMINOPHEN 5/325 TABLET 1 TAB PO (19:39)
[2017-09-17] MEDS: DEXTROSE 5%-0.45% NS 1,000 ML 100 ML IV (19:40)
--- NOTE | 2017-09-17 22:18 | OP_ITS ---
DATE OF SERVICE: 09/17/2017 approximately 06:30 PM, Wednesday night PREOP DIAGNOSIS: Acute cholecystitis with impacted cystic duct stone. POSTOP DIAGNOSIS: Acute cholecystitis with impacted cystic duct stone. PROCEDURE: Laparoscopic cholecystectomy. SURGEON: Jesus Gonsales MD ANESTHESIA: General endotracheal. INDICATIONS: The patient is a 37-year-old black male with morbid obesity, BMI of 53, brought to the operating room and given a general endotracheal anesthetic, prepped and draped in a sterile fashion. Exposure of the upper abdomen. Properly identified during surgical pause. A 5-mm port was placed in the upper right abdomen under direct vision using the laparoscope for visibility. There was no visceral injury. Four additional ports were placed for a total of 5 ports in this morbidly obese patient with acute cholecystitis. I used the fan retractor to hold the omentum down so I could see the duodenum and then elevated the gallbladder after I aspirated the contents, otherwise, the gallbladder was so tense I could not grasp it, so I aspirated the gallbladder. There was an impacted stone in the neck of the gallbladder at the junction with the cystic duct. I could not dissect the cystic duct because of this stone; therefore, I opened the gallbladder near the cystic duct and extracted that stone and removed it in fragments. It was about a 1.5 cm stone. Then I was able to dissect the cystic duct down to the critical view of Calot triangle, saw Calot node, and closed the cystic duct with multiple clips, divided it, leaving several with the patient. There was no bile leak. I identified the cystic artery behind the cystic duct, closed it with multiple clips, divided it, leaving several with the patient. There was no bleeding. Then, I dissected the gallbladder away from the liver bed with a massively distended liver full of glycogen stores. The liver wrapped around the gallbladder, almost an intrahepatic gallbladder. This is a very difficult dissection. I used the suction, I used electrocautery, and was finally able to completely dissect the gallbladder away from the liver, removed it with considerable difficulty because of its thickness and other stones. I had to enlarge the epigastric port and I finally was able to extract the gallbladder. Then I irrigated the operative site with several liters of saline, aspirated it dry. There was actually no bleeding but because of the difficulty of dissection, I placed a segment of Surgicel in the gallbladder fossa. I removed the trocars under direct vision. There was no bleeding. I closed the epigastric fascia with 0-Vicryl. The skin was stapled on all the incisions. Sterile dressings applied. He actually tolerated this in a stable condition. Anuj Donahue - /laura/tomy doc#: [id number]/job#: [id number] dd: 09/17/2017 18:20:00 dt: 09/17/2017 22:01:00 DICTATING /COPIES TO: Jesus Gonsales MD COPIES MNE: OWEN
[2017-09-18 00:12] VITALS: BP 135/74; PULSE 78; RESP 20; TEMP 36.7; O2SAT 96
[2017-09-18 05:25] VITALS: BP 144/76; PULSE 75; RESP 18; TEMP 36.7; O2SAT 97
[2017-09-18] MEDS: IBUPROFEN 600 MG TABLET PO (06:36)
[2017-09-18] MEDS: DEXTROSE 5%-0.45% NS 1,000 ML 100 ML IV (06:37)
[2017-09-18 07:20] VITALS: BP 152/88; PULSE 80; RESP 16; TEMP 36.8; O2SAT 98
--- NOTE | 2017-09-18 10:20 | PM.DS.1 ---
History of Present Illness Date Patient Seen: 09/18/17 Time Patient Seen: 10:20 Chief complaint: states pain in rt lower quadrant,nausea Narrative: 37-year-old morbidly obese male who presented with severe epigastric and right upper quadrant abdominal pain. Examination and evaluation were consistent with acute cholecystitis secondary to cholelithiasis. He was taken for urgent laparoscopic cholecystectomy on September 17, 2017. Discharge Providers Date of admission: 09/17/17 18:04 Discharge provider: Andrea Cuenca MD Summary Discharge Diagnosis: 1. Acute cholecystitis secondary to cholelithiasis 2. Morbid obesity 3. Hypertension Hospital Course: Patient was admitted from the emergency department to the operating room for the above surgical procedure. He tolerated this well and was admitted to the regular surgical floor postoperatively. He remained afebrile hemodynamically stable. By postoperative day 1 he was tolerating a regular diet without issues. No nausea or vomiting. He is ambulating normally. Reports normal bowel and bladder functions spontaneously. Pain is well controlled with oral analgesics. Incisions are healing nicely without evidence of any infection or other complications. His preoperative epigastric pain has completely resolved following cholecystectomy. Because of his overall good condition he is discharged home. He has been instructed on wound care. He will follow up in the surgery clinic in 2 weeks. However, I clearly instructed him to call or return sooner for any fever, chills, vomiting, inability to tolerate oral intake, wound drainage, or progressive uncontrolled pain. All questions were answered to his satisfaction, and he voiced understanding. Exam Vital Signs (past 8 hours): - 09/18/17 05:25 09/18/17 07:20 Temperature 98.1 F 98.3 F Pulse Rate 75 80 Respiratory Rate 18 16 Blood Pressure 144/76 H 152/88 H Pulse Oximetry 97 98 Oxygen Delivery Method Room Air Narrative Exam Narrative: Well-nourished well-developed obese male in no acute distress resting comfortably in bed. Alert orient x3. is at the bedside. Sclera nonicteric Chest clear to auscultation bilaterally. Regular rate and rhythm. No murmurs. Abdomen is obese but soft and nondistended. Normal bowel sounds throughout. Dressings are clean, dry, and intact. No erythema. He is minimally tender to palpation. No Child sign. No guarding or rebound. Extremities show no clubbing or cyanosis Objective Labs Result Diagrams: 09/17/17 11:53 09/17/17 11:53 Labs: Laboratory Results - last 24 hr 09/17/17 09/17/17 11:53 11:53 WBC 9.4 RBC 5.27 Hgb 13.9 Hct 42.0 MCV 79.7 L MCH 26.4 MCHC 33.2 RDW 14.6 Plt Count 432 H Neut % (Auto) 66.3 Lymph % (Auto) 23.8 L [place] % (Auto) 8.3 Eos % (Auto) 0.8 L Baso % (Auto) 0.8 Neut # (Auto) 6200 H Sodium 139 Potassium 4.7 Chloride 97 L Carbon Dioxide 28 BUN 11 Creatinine 0.80 Estimated GFR > 60.0 BUN/Creatinine Ratio 13.8 Glucose 104 H Calcium 9.5 Total Bilirubin 1.4 H AST 55 ALT 54 Alkaline Phosphatase 68 Total Creatine Kinase 343 H CK-MB (CK-2) 1.85 CK-MB (CK-2) Rel Index 0.5 L Troponin I < 0.012 Total Protein 9.1 H Albumin 4.8 Globulin 4.3 H Albumin/Globulin Ratio 1.1 Lipase 129 Discharge Plan Discharge Plan Patient Disposition: Home, Self-Care Discharge comment: Patient may NOT return to work until further notice. Release will be determined pending follow-up in the surgery clinic. Provider Discharge Instructions Diet: Diet as Tolerated Activity: No heavy lifting more than 20 lb for 2 weeks May not return to work until further notice No driving May walk as much as desired May climb stairs May shower beginning today Cold/Heat Therapy: May apply ice pack to incisions as needed for comfort Wound Care Dressing: Remove current dressings tomorrow September 19, 2017 May replace dressing, such as Band-Aids, as needed after shower Other wound treatment: Do not soak incisions in bathtub or swimming pool for at least 2 weeks Discharge Data Attending Provider: Jesus Gonsales Admit Date/Time: 09/17/17 18:04 Quality VTE Deep Vein Thrombosis/Pulmonary Embolism Present on Admission: No
--- NOTE | 2017-09-18 11:17 | PC.NURSE ---
Day shift: Pt left unit with SO and this fha underwriter. He ambulated. No SOB and steady on his feet. Pain minimal and controlled with Ibuprofen. PAperwork signed and questions answered. He has all personal belongings and his oxycodone script. LEft unit at 1110.
--- NOTE | 2017-09-18 15:18 | CM.DANOTE ---
DCP Chart Review and Discharge Home Patient is a 37 year old male who was admitted on 09/17/17 for Lap Natali. Pt has HMA for insurance and his PCP is not listed. EMR was reviewed. Per Surgeon, pt is medically stable for d/c home with Sig Other today and no identified barriers to discharge. Per RN, no needs identified and pt has ride home. SW did not complete bedside assessment due to triage needs and no barriers identified. Plan: Patient to d/c home today via friend POV and no SW needs at this time. IAN Darnell
== END 2017-09-18 11:22 | disposition home or self-care (01) ==
LOC: ED 16:03 → AC 09-18 08:39
PROVIDERS: Admitting Provider Surgery; Emergency Provider Internal Medicine; Visit Provider Surgery
PROC: 0FT44ZZ Resection of Gallbladder, Percutaneous Endoscopic Approach (ICD-10-PCS; CPT 47562; principal; 2017-09-17 15:30)
DX: K80.62 Calculus of gallbladder and bile duct with acute cholecystitis without obstruction (principal); E66.01 Morbid (severe) obesity due to excess calories; Z68.43 Body mass index [BMI] 50.0-59.9, adult; I10 Essential (primary) hypertension
CPT/HCPCS: 47562; 36591; 36592; 74022; 76700; 80053; 82550; 82553; 83690; 84484; 85025; 93005; 96361; 96374; 96375; 99220; 99283; 99285; G0378; J0330; J0696; J1100; J1885; J2250; J2405; J2704; J3010

== ENCOUNTER 2018-07-15 21:55 | Emergency (ER) | payer OTHER, SELFPAY ==
[2017-09-17 19:18] VITALS: BMI 303.7
[2018-07-15 22:00] VITALS: BP 160/97; PULSE 97; RESP 20; TEMP 37.3; O2SAT 96; BMI 53.1
--- NOTE | 2018-07-15 22:26 | ED_ITS ---
HPI - Abdominal Pain General Chief Complaint: Abdominal Pain Stated Complaint: ABD SWELLING PAIN Time Seen by Provider: 07/15/18 22:01 Source: patient Mode of arrival: ambulatory Limitations: no limitations History of Present Illness HPI narrative: 38-year-old male who underwent a laparoscopic cholecystectomy 1 year ago here for evaluation of approximately 1 month of occasional right upper quadrant pain and swelling. he does not have a primary care doctor. Has not had any change in his bowel or urine. States the pain is located around the incision in his right upper quadrant. No vomiting. has not tried anything for symptoms prior to arrival. He stated that he came in today because the pain that he has has not gone away like it normally does. Related Data Home Medications Medication Instructions Recorded Confirmed hydrochlorothiazide 25 mg PO DAILY 09/17/17 09/17/17 Previous Rx's Medication Instructions Recorded oxycodone 5 mg PO Q3H PRN #30 tab 09/18/17 Allergies Allergy/AdvReac Type Severity Reaction Status Date / Time No Known Drug Allergies Allergy Verified 10/04/17 15:59 Review of Systems Constitutional Denies fever(s) Cardiovascular Denies chest pain and Denies dyspnea Respiratory Denies dyspnea Gastrointestinal Gastrointestinal: Reports abdominal pain, Reports bloating, Denies change in stool character, Denies constipation, Denies diarrhea, Denies nausea and Denies vomiting Genitourinary Denies dysuria Musculoskeletal Denies myalgias and Denies arthralgias Integumentary/Breasts Denies rash and Denies sores Neurologic Denies behavioral changes Psychiatric Denies behavioral changes Hematologic/Lymphatic Denies easy bleeding and Denies easy bruising Allergic/Immunologic Denies urticaria [facility] Medical History (Updated 07/16/18 @ 02:10 by Alban Monique DO) HTN (hypertension) (Chronic) Surgical History History of cholecystectomy (Acute) Hx laparoscopic cholecystectomy (Resolved) Family History (Updated 10/04/17 @ 15:55 by Kiki Thrasher LPN) Mother Hypertension Social History (Updated 09/17/17 @ 12:31 by Snehal Pagan PA-C) household members: significant other Smoking Status: Never smoker alcohol intake: current substance use type: does not use Family History (Updated 10/04/17 @ 15:55 by Kiki Thrasher LPN) Mother Hypertension Social History household members: significant other Smoking Status: Never smoker alcohol intake: current substance use type: does not use Exam Initial Vital Signs Initial Vital Signs: Vital Signs Temperature 99.2 F 07/15/18 22:00 Pulse Rate 97 H 07/15/18 22:00 Respiratory Rate 20 07/15/18 22:00 Blood Pressure 160/97 H 07/15/18 22:00 Pulse Oximetry 96 07/15/18 22:00 Const General: cooperative, healthy appearing, comfortable, well developed, well groomed and No acute distress Nutritional Appearance: obese Orientation: alert, awake and oriented x3 HENMT Head: normal to inspection and normocephalic Resp Effort & Inspection: normal respiratory effort Auscultation: clear to auscultation bilaterally Cardio Rate: regular rate Rhythm: regular rhythm Pulses: radial pulses present GI Inspection: non-distended Palpation: soft and tender (Right upper quadrant.) Other: Patient has well-healed surgical scars. He does have some tenderness around the right upper quadrant surgical incision with what appears to be a abdominal wall deficit underneath. No hernias felt. Back/Spine/Pelvis Back: No CVA tenderness Skin General: No jaundice Lesions: no lesions Rashes: no rashes Neuro General: alert, awake and oriented x3 Cognition: normal cognition Speech: speech normal Extrem General: normal to inspection and capillary refill normal Scores GCS [place] coma scale eye opening: Spontaneous [place] coma scale verbal response: Orientated [place] coma scale motor response: Obey commands [place] coma scale total score: 15 Course Orders Ordered: ED Orders 07/15/18 22:28 CT abdomen pelvis w con Stat 07/15/18 23:08 Complete Blood Count AUTO DIFF Stat Comprehensive Metabolic Panel Stat Lipase Stat Discontinued Medications Sodium Chloride (Normal Saline 0.9%) 1,000 mls @ 1,000 mls/hr IV BOLUS ONE Stop: 07/15/18 23:26 Last Infusion: 07/16/18 00:23 Dose: 0 mls/hr Admin: 07/15/18 23:08 Dose: 1,000 mls/hr Vital Signs - 8 hr 07/15/18 22:00 07/15/18 23:16 Temperature 99.2 F Pulse Rate 97 H 90 Respiratory Rate 20 18 Blood Pressure 160/97 H Blood Pressure [Right Arm] 160/95 H Pulse Oximetry 96 100 MDM - Abdominal Pain Lab Data Attestation: I reviewed the patient's lab results. Result diagrams: 07/15/18 23:08 07/15/18 23:08 Lab Results 07/15/18 07/15/18 Range/Units 23:08 23:08 WBC 5.9 (4.5-11.0) X10^3/uL RBC 5.20 (4.5-5.9) X10^6/uL Hgb 13.8 (13.5-17.5) g/dL Hct 41.0 (41-53) % MCV 78.9 L (80-100) fL MCH 26.5 (26-34) PG MCHC 33.6 (30-36) % RDW 14.7 (11.6-14.8) % Plt Count 399 (150-400) X10^3/uL Neut % (Auto) 71.1 (50-75) % Lymph % (Auto) 18.3 L (25-40) % [place] % (Auto) 9.1 (3-14) % Eos % (Auto) 0.9 L (2-4) % Baso % (Auto) 0.6 (0-2) % Neut # (Auto) 4200 (8569-1459) /uL Lymph # (Auto) 1100 (2199-0251) /uL [place] # (Auto) 500 (0-900) /uL Eos # (Auto) 100 (0-450) /uL Baso # (Auto) 0 (0-100) /uL Sodium 141 (137-145) mmol/L Potassium 3.8 (3.4-5.1) mmol/L Chloride 103 (98-107) mmol/L Carbon Dioxide 27 (22-32) mmol/L BUN 15 (9-20) mg/dL Creatinine 1.10 (0.66-1.25) mg/dL Estimated GFR > 60.0 (>60) mL/min BUN/Creatinine Ratio 13.6 (6-22) Glucose 97 (70-100) mg/dL Calcium 9.6 (8.4-10.2) mg/dL Total Bilirubin 3.9 H (0.2-1.3) mg/dL AST 518 H (17-59) IU/L ALT 762 H (21-72) IU/L Alkaline Phosphatase 125 (38-126) U/L Total Protein 8.4 H (6.3-8.2) g/dL Albumin 4.8 (3.5-5.0) g/dL Globulin 3.6 (1.7-4.1) g/dL Albumin/Globulin Ratio 1.3 (1.0-2.8) Lipase 1933 H (23-300) U/L Imaging Data CT scan - abdomen: Radiologist's impression: Mild cardiomegaly. Mild biliary duct dilation associated with cholecystectomy. There is a prominent papilla of Vater the mucosa associated with the papilla appears somewhat thickened. Considerations would include papilitis. Other etiologies including neoplasm not excluded. Consider MRCP for further evaluation. Findings consistent with cystitis. MDM Narrative Medical decision making narrative: Patient has elevated LFTs and elevated bilirubin but normal alk-phos. He also has an elevated lipase. The CT scan shows no signs of a hernia however does show abnormalities in the hepatobiliary system. Unsure if this is an incidental finding or the source of his pain that brought him in. Upon arrival it did seem to appear that his pain was more superficial however he did have tenderness with deeper palpation. I discussed the case with our hospitalist who stated that it is likely that he is going to need an ERCP and recommended transfer. I discussed the case with Dr. Leblanc the hospitalist at [facility] who accepts the patient for transport. The patient is stable for transport. Patient has normal vital signs. he prefers to go private vehicle. His family is at bedside and they state that they are safe to drive him. Informed him that we would have to remove his IV which he was okay with. Patient agrees with transport. Discharge Plan Departure Patient Disposition: [facility] Clinical Impression: Elevated LFTs Pancreatitis Qualifiers: Chronicity: acute Pancreatitis type: unspecified pancreatitis type Acute pancreatitis complication: unspecified Qualified Code(s): K85.90 - Acute pancre atitis without necrosis or infection, unspecified Activity Restrictions/Additional Instructions: You're driving to [facility] by your private vehicle. Please go to the ED admissions desk and tell them that you are a direct admission under Dr. Leblanc. They will direct you from there. Prescriptions: No Action hydrochlorothiazide 25 mg Tablet 25 mg PO DAILY RF: 0 oxycodone 5 mg tablet 5 mg PO Q3H PRN (Reason: pain) Qty: 30 RF: 0
--- NOTE | 2018-07-15 22:28 | DI.CT.S_ITS ---
PROCEDURE: CT ABDOMEN PELVIS W CON INDICATIONS: Right upper quadrant pain concerning for incisional hernia TECHNIQUE: After the administration of intravenous contrast, 5 mm thick sections acquired from the diaphragm to the symphysis. 5 mm coronal and sagittal reformats were acquired. For radiation dose reduction, the following was used: automated exposure control, adjustment of mA and/or kV according to patient size. COMPARISON: None. FINDINGS: Image quality: Excellent. ABDOMEN: Lung bases: There is minimal dependent atelectasis. Heart size is mildly enlarged. Solid organs: There is mild hyperattenuation of the liver compatible with fatty infiltration. The gallbladder is surgically absent. There is mild biliary ductal dilatation with the common bile duct measuring up to 8 mm likely related to prior cholecystectomy. The major papilla is mildly prominent without a definite mass. No peripancreatic fat stranding or fluid collections. No discrete pancreatic mass identified or pancreatic duct dilatation. Spleen is normal in size and enhancement. No adrenal nodules. Kidneys demonstrate normal size and enhancement, without hydronephrosis. There is a small left renal cysts. Peritoneum and bowel: Bowel loops demonstrate normal wall thickness and caliber. No evidence of appendicitis. No free fluid or air. Nodes and vessels: No retroperitoneal or mesenteric adenopathy by size criteria. Aorta and inferior vena cava are normal in size. Miscellaneous: No incisional hernia identified as clinically queried. There is a small fat-containing umbilical hernia. The PELVIS: Genitourinary: There is incomplete distention of the urinary bladder. Mild pericystic fat stranding is noted. Miscellaneous: No inguinal hernias or adenopathy. Bones: No suspicious bony lesions. No vertebral body compression fractures. IMPRESSION: 1. Mild prominence of the major papilla without a discrete mass. The finding is nonspecific and correlation is recommended with laboratory values. If there is clinical suspicion for biliary obstruction or papillitis, consider further evaluation with a contrast enhanced MRCP. 2. No discrete incisional hernia as clinically queried. 3. Mild pericystic fat stranding may reflect a cystitis. Recommend correlation with urinalysis. Concordant with preliminary interpretation. Dictated by: Elton Harrington M.D. on 07/16/2018 at 7:54 Approved by: Elton Harrington M.D. on 07/16/2018 at 8:00
[2018-07-15] MEDS: SODIUM CHLORIDE 0.9% 1,000 ML 1000 ML IV (23:08)
[2018-07-15 23:13] LABS: Add Manual Diff / Slide Review NO; Basophils Absolute Auto 0 /uL (0-100); Basophils Percent Auto 0.6 % (0-2); Eosinophils Absolute Auto 100 /uL (0-450); Eosinophils Percent Auto 0.9 % (2-4); Hemoglobin 13.8 g/dL (13.5-17.5); Lymphocytes Absolute Auto 1100 /uL (1100-4500); Lymphocytes Percent Auto 18.3 % (25-40); Mean Corpuscular HGB Conc 33.6 % (30-36); Mean Corpuscular Hemoglobin 26.5 PG (26-34); Mean Corpuscular Volume 78.9 fL (80-100); Monocytes Absolute Auto 500 /uL (0-900); Monocytes Percent Auto 9.1 % (3-14); Neutrophils Absolute Auto 4200 /uL (1500-7000); Neutrophils Percent Auto 71.1 % (50-75); Platelet Count 399 X10^3/uL (150-400); Red Cell Distribution Width 14.7 % (11.6-14.8); White Blood Cell Count 5.9 X10^3/uL (4.5-11.0)
[2018-07-15 23:16] VITALS: BP 160/95; PULSE 90; RESP 18; O2SAT 100
[2018-07-15 23:22] LABS: Alanine Aminotransferase 762 IU/L (21-72); Albumin 4.8 g/dL (3.5-5.0); Albumin Globulin Ratio 1.3 (1.0-2.8); Alkaline Phosphatase 125 U/L (38-126); Aspartate Aminotransferase 518 IU/L (17-59); BUN Creatinine Ratio 13.6 (6-22); Bilirubin Total 3.9 mg/dL (0.2-1.3); Blood Urea Nitrogen 15 mg/dL (9-20); Calcium 9.6 mg/dL (8.4-10.2); Carbon Dioxide 27 mmol/L (22-32); Chloride 103 mmol/L (98-107); Estimated Glomerular Filt Rate > 60.0 mL/min (>60); Globulin 3.6 g/dL (1.7-4.1); Glucose 97 mg/dL (70-100); HEMOLYSIS < 15 (0-50); Lipase 1933 U/L (23-300); Potassium 3.8 mmol/L (3.4-5.1); Sodium 141 mmol/L (137-145); Total Protein 8.4 g/dL (6.3-8.2)
[2018-07-16 00:30] VITALS: BP 140/79; PULSE 88; RESP 18; O2SAT 98
[2018-07-16 02:10] VITALS: BP 141/80; PULSE 88; RESP 20; O2SAT 98
== END 2018-07-16 02:29 | disposition short-term general hospital (02) ==
PROVIDERS: Emergency Provider Emergency Medicine
DX: R94.5 Abnormal results of liver function studies (principal); K85.90 Acute pancreatitis without necrosis or infection, unspecified
CPT/HCPCS: 36591; 74177; 80053; 83690; 85025; 96360; 99284; Q9967

== ENCOUNTER → 2022-06-04 17:42 | Outpatient (ROUT) | payer OTHER, SELFPAY ==
[2022-03-17 16:05] VITALS: BMI 303.7
[2022-06-04 18:12] LABS: Semen Sperm Prescence Post-Vas Absent (ABSENT)
== END ==
PROVIDERS: PCP Urology; Visit Provider Specialist
DX: Z98.52 Vasectomy status (principal)
CPT/HCPCS: 89321